=== PATIENT | female | born 1960 | race Caucasian/White ===

== ENCOUNTER 2017-04-29 18:13 | Emergency (ER) | payer OTHER ==
[~2017-04-29] VITALS: Ht 157.5 cm; Wt 46.3 kg
[~2017-04-29 18:13] MED LIST: PARO20 PO
[2017-04-29 18:16] VITALS: BP 123/56; PULSE 84; RESP 17; TEMP 98.7; O2SAT 100
[2017-04-29] MEDS ORDERED: KETOROLAC TROMETHAMINE 60 MG/2 ML (IM) VIAL IM ONE (19:00)
[2017-04-29] MEDS ORDERED: ORPHENADRINE INJ 60 MG/2 ML AMP IM ONE (19:00)
[2017-04-29] MEDS ORDERED: CYCL1TAB29 PO (19:09)
--- NOTE | 2017-04-29 19:09 | PD ---
HPI Chief Complaint: Back/ Neck Pain or Injury Time Seen by Provider: 18:47 Travel History International Travel<30 days: No Contact w/Intl Traveler<30days: No Traveled to known affect area: No History of Present Illness HPI 56 old female presents emergency department for evaluation of low back pain after lifting heavy crates of boxes yesterday. Patient reports the pain as constant, nonradiating localized to the low back. She reports the pain is worse with twisting and flexion of the back slightly improved with rest. She denies fever, chills, incontinence, saddle anesthesia, numbness/weakness/ tingling in the extremities. Symptom severity is moderate. Pain scale 7/10. PFSH Past Medical History Narrative Medical Significant for COPD Cancer: No Cardiovascular Problems: No Diminished Hearing: No Endocrine: No Genitourinary: No Immune Disorder: No Musculoskeletal: No Neurologic: No Psychiatric: No Reproductive: No Respiratory: No ?: Not : 2 Para: 2 Past Surgical History Section: Yes Gynecologic Surgery: Yes (c section) Oral Surgery: Yes (jaw wired twice) Pacemaker: No Other Surgery: Yes (jaw wired shut) Social History Alcohol Use: Yes Tobacco Use: Yes (08/29 PPD ) Substance Use: No Allergies-Medications (Allergen,Severity, Reaction): Coded Allergies: No Known Allergies (Verified , 04/29/17) Reported Meds & Prescriptions Reported Meds & Active Scripts Active No Active Prescriptions or Reported Medications Review of Systems Except as stated in HPI: all other systems reviewed are Neg General / Constitutional: No: Fever Eyes: No: Visual changes HENT: No: Headaches Cardiovascular: No: Chest Pain or Discomfort Respiratory: No: Shortness of Breath Gastrointestinal: No: Abdominal Pain Physical Exam Narrative GENERAL: Well-nourished, well-developed patient. SKIN: Focused skin assessment warm/dry. HEAD: Normocephalic. EYES: No scleral icterus. No injection or drainage. NECK: Supple, trachea midline. No JVD or lymphadenopathy. CARDIOVASCULAR: Regular rate and rhythm without murmurs, gallops, or rubs. RESPIRATORY: Breath sounds equal bilaterally. No accessory muscle use. GASTROINTESTINAL: Abdomen soft, non-tender, nondistended. MUSCULOSKELETAL: No cyanosis, or edema. BACK: Tenderness of the paraspinous musculature in the lumbar region. Without obvious deformity. No CVA tenderness. NEUROLOGICAL: Awake and alert. Motor and sensory grossly within normal Limits. Five out of 5 muscle strength in all muscle groups. Dorsiflex and plantarflex intact Data Data Last Documented VS Vital Signs Date Time Temp Pulse Resp B/P (MAP) Pulse Ox O2 Delivery O2 Flow Rate FiO2 04/29/17 18:16 98.7 84 17 123/56 (78) 100 Orders Orders Ketorolac Inj (Toradol Inj) (04/29/17 19:00) Orphenadrine Inj (Norflex Inj) (04/29/17 19:00) [facility] Medical Decision Making Medical Screen Exam Complete: Yes Emergency Medical Condition: Yes Differential Diagnosis Lumbar strain, herniated disc, sciatica Narrative Course 56-year-old female presents emergency department for evaluation of low back pain 3 days after lifting heavy boxes. Patient's physical exam is reassuring. She has tenderness in the paraspinous muscle which are of the lumbar spine. She has a normal neurologic exam. 5 out of 5 strength in lower extremities. Dorsi flex and plantar flex intact. Patient be treated for lumbar strain. Diagnosis Primary Impression: Lumbar strain Qualified Codes: S39.012A - Strain of muscle, fascia and tendon of lower back , initial encounter Referrals: [facility] Additional Instructions: Take the medications as prescribed. Take the Muscle relaxer as needed for spasm. Follow-up with your primary doctor Scripts Cyclobenzaprine (Flexeril) 10 Mg Tab 10 MG PO TID for Muscle Spasm, #12 TAB 0 Refills Prov: Suzette Herbert 04/29/17 Disposition: 01 DISCHARGE HOME Condition: Stable Suzette Herbert Apr 29, 2017 19:09
== END 2017-04-29 19:20 | disposition home or self-care (01) ==
LOC: PHEFT 18:13
DX: S39.012A Strain of muscle, fascia and tendon of lower back, initial encounter (principal); F17.200 Nicotine dependence, unspecified, uncomplicated; Z87.09 Personal history of other diseases of the respiratory system; X50.0XXA Overexertion from strenuous movement or load, initial encounter
CPT/HCPCS: 96372; 99284; J1885; J2360